=== PATIENT | female | born 1990 | race Caucasian/White ===

== ENCOUNTER 2019-04-09 11:33 | Emergency (ER) | payer SELFPAY ==
[~2019-04-09] VITALS: Ht 154.9 cm; Wt 65.8 kg
--- NOTE | ~2019-04-09 | CONS ---
[facility] [address], [place] [address] Draft DATE OF CONSULTATION: CHIEF COMPLAINT: Vulvar abscess. HISTORY OF PRESENT ILLNESS: Ms. Hill is a pleasant 28-year-old, G0, P0 white female, who presents with a 1-week history of fluctuant right vulvar mass. She has a history of Bartholin's abscesses over the past several years. One was treated by simple I and D in [place], and the 2nd was treated with oral antibiotics alone. She presented to [facility] earlier this week and was started on Bactrim DS. She reports that she has taken the medication as prescribed, but her symptoms became severe today. She reports pain at rest or with any movements. She is unable to bend over or sit comfortably. She denies fevers, chills, or vaginal discharge. No new sexual partners. She does have a history of genital warts as a teenager, but none since. No other questions or concerns at this time. PAST MEDICAL HISTORY: 1. Shingles. 2. History of Bartholin's abscess. PAST SURGICAL HISTORY: None. SOCIAL HISTORY: The patient denies tobacco, alcohol, or drug use. She is sexually active with her boyfriend. FAMILY HISTORY: Positive for mother with breast cancer and ovarian cancer that "runs in my family." Unknown BRCA screening in the family. ALLERGIES: None. MEDICATIONS: Bactrim per HPI. REVIEW OF SYSTEMS: A complete review of systems was performed and negative except per HPI. PHYSICAL EXAMINATION: VITAL SIGNS: Stable. Please see ED charting for vital signs. GENERAL: The patient is a healthy-appearing white female, sitting on her left hip in a PATIENT NAME: TIEN HILL CONSULTATION DATE OF : 89 REPORT #: [id number] PHYSICIAN: JOE WILSON DO PCP: NO PRIMARY CARE PHYSICIAN REPORT IS CONFIDENTIAL AND NOT TO BE RELEASED WITHOUT AUTHORIZATION [facility] [address], [place] [address] [address] hospital bed. She is pleasant, but appears uncomfortable. HEENT: Normocephalic, atraumatic. NECK: Supple. Trachea midline. No lymphadenopathy. HEART: Regular rate and rhythm. LUNGS: Clear to auscultation bilaterally. ABDOMEN: Soft, nondistended, nontender. EXTREMITIES: No edema. SKIN: Positive for multiple tattoos. PELVIC: The patient with a large fluctuant mass in the area of the right Bartholin's gland that extends up the vulva on the right. The rest of the pelvic exam is normal. Normal clitoris, urethral meatus, bilateral [place]'s, and left Bartholin's gland. The introitus is normal and on bimanual exam, the patient has a normal uterus and adnexa bilaterally. Speculum exam was not performed. Please see procedure note below for I and D. LABORATORY DATA: none. ASSESSMENT: 1. Bartholin's abscess, recurrent. 2. Family history of breast and ovarian cancer. PLAN: Incision and drainage of Word catheter per procedure note below. The patient will complete course of Bactrim was prescribed. The wound was cultured and results requested to be carbon copied to myself. The patient will follow up in the office in two days. We reviewed Word catheter in detail including hygiene and Word catheter care. Discussed that we would like to keep this in place for several weeks until the skin is epithelialized. The patient understands and agrees. PROCEDURE: We reviewed Word catheter insertion and Traci's abscess I and D in detail. Risks, benefits, and alternatives were discussed. We did discuss that if this fails, she may require either marsupialization or gland excision in the future. The patient understands and agrees. Consents were signed. The patient was then prepped and draped in the supine position with her feet in stirrups. The introitus and vagina were prepped with iodine. The skin was infiltrated with 0.25% Marcaine with epinephrine. Once adequate local anesthetic was established, a stab incision approximately 2-3 mm was made using an 11 blade scalpel. Immediately, a large amount of purulent material was expressed through the incision. Culture was obtained and sent with results to be carbon copied to myself. Hemostat was used to break up any loculations and the entire abscess cavity was drained with patient reporting immediate and profound relief of her symptoms. A Word catheter was then placed and the balloon filled with 3 mL of sterile water. The Word catheter was then tucked in the patient's vagina and the patient tolerated the PATIENT NAME: TIEN HILL CONSULTATION DATE OF : [birth year] REPORT #: [id number] PHYSICIAN: JOE WILSON DO PCP: NO PRIMARY CARE PHYSICIAN REPORT IS CONFIDENTIAL AND NOT TO BE RELEASED WITHOUT AUTHORIZATION [facility] [address] [place] [id number] Draft procedure very well. We reviewed Word catheter care in detail. The patient will follow up in the office in two days. Joe Wilson DO JDW/MODL /[id number] Copies: ~ PATIENT NAME: TIEN HILL CONSULTATION DATE OF : [birth year] REPORT #: [id number] PHYSICIAN: JOE WILSON DO PCP: NO PRIMARY CARE PHYSICIAN REPORT IS CONFIDENTIAL AND NOT TO BE RELEASED WITHOUT AUTHORIZATION
[2019-04-09] MEDS ORDERED: BACTRIM DS TAB1 EACH PO (12:13)
== END 2019-04-09 13:50 | disposition home or self-care (01) ==
LOC: ED 11:33
PROC: 0U9LXZZ Drainage of Vestibular Gland, External Approach (ICD-10-PCS; principal; 2019-04-09)
DX: N75.1 Abscess of Bartholin's gland (principal)
CPT/HCPCS: 56420; 87070; 87077; 99283-25